=== PATIENT | female | born 1970 | race Caucasian/White ===

== ENCOUNTER 2021-02-24 21:21 | Inpatient (IN) | payer MEDICAID, OTHER ==
[~2021-02-24] VITALS: Ht 162.6 cm; Wt 85.1 kg
--- NOTE | 2021-02-24 21:26 | NUR ---
CODE NEURO PG @4 NEURO (HALEY) PG@9854
[2021-02-24] MEDS ORDERED: OMNIPAQUE 350 MG/ML, 100ML BOTTLE ONE (21:49)
[2021-02-24] MEDS ORDERED: PLEASE ENTER ALLERGIES MC SCH (22:00)
[2021-02-24] MEDS ORDERED: LORazepam 2 MG/ML, 1ML ONE (22:06)
--- NOTE | 2021-02-24 22:10 | NUR ---
FAMILY AT BS. PT. SPEAKING WITH FAMILY. SLURRED SPEECH.
--- NOTE | 2021-02-24 22:13 | NUR ---
NEURO TELE MD ASSESSED PT. PER NEUROLOGY MAINTAIN SBP LESS THAN 160; MED INFUSING PER MAR.
[2021-02-24 22:15] LABS: BASOPHILS % (AUTO) 1 % (0-1); EOSINOPHILS % (AUTO) 3 % (1-7); LYMPHOCYTES % (AUTO) 36 % (22-44); MEAN CORPUSCULAR HEMOGLOBIN 30.6 pg (27.0-34.8); MEAN CORPUSCULAR HGB CONC 33.6 g/dL (32.4-35.8); MEAN PLATELET VOLUME 9.2 fL (7.4-10.4); MONOCYTES % (AUTO) 15 % (2-9); NEUTROPHILS % (AUTO) 46 % (42-75); PLATELET COUNT 100 x10^3/uL (130-400); RED BLOOD COUNT 4.55 x10^6/uL (3.82-5.3); RED CELL DISTRIBUTION WIDTH 15.8 % (9.6-15.2)
[2021-02-24 22:16] LABS: ALBUMIN 2.9 g/dL (3.4-5.0); ANION GAP 6 mmol/L (5-15); CALCIUM 8.5 mg/dL (8.5-10.1); CHLORIDE 111 mmol/L (98-107)
--- NOTE | 2021-02-24 22:16 | NUR ---
DR. SOUZA TO BS SPEAKING WITH SON AT THIS TIME AND DISCUSSING POC.
[2021-02-24 22:18] LABS: INTERNATIONAL NORMALIZED RATIO 1.12 (0.93-1.1)
[2021-02-24 22:19] LABS: ALANINE AMINOTRANSFERASE 52 U/L (12-78); ALKALINE PHOSPHATASE 109 U/L (45-117); BILIRUBIN,TOTAL 0.6 mg/dL (0.2-1.0); CREATININE 0.63 mg/dL (0.55-1.02); TOTAL PROTEIN 7.6 g/dL (6.4-8.2)
[2021-02-24] MEDS ORDERED: LORazepam 2 MG/ML, 1ML IVPush ONE (22:30)
--- NOTE | 2021-02-24 22:38 | NUR ---
SON TOOK PT. BELONGINGS HOME WITH HIM(SHIRT, PANTS, SOCKS, UNDERWEAR). PT. DID NOT COME IN WITH ANY OTHER BELONGINGS. PT. CURRENTLY RESTING ON GUENY WITH HOB APROXIMATELY 30 DEGREES. PT. RESTING ON GURNEY WITH EYES CLOSED. NO VISIBLE DISTRESS NOTED. SEE DEC/ FOR MED DETAILS. MED ON PAUSE AT THIS TIME FOR SBP OF 134.
--- NOTE | 2021-02-24 22:58 | NUR ---
NEURO MD TO BS FOR EVAL. REQUESTING URINE DRUG SCREEN. COLLECTED AND SENT TO LAB. PT. HAS PURWICK IN PLACE FOR VOIDING.
--- NOTE | 2021-02-24 23:10 | NUR ---
DR. JORDAN TO BS TO EVAL PT. FOR ADMISSION.
--- NOTE | 2021-02-24 23:13 | NUR ---
PT. CONTINUES RESTING ON GURNEY WITH EYES CLOSED. RESPIRATIONS EVEN, NON-LABORED. NO DISTRESS NOTED.
[2021-02-24] MEDS ORDERED: DOCUSATE 100 MG CAPSULE PO PRN (23:30)
[2021-02-24] MEDS ORDERED: BISACODYL 10 MG SUPP PR PRN (23:30)
[2021-02-24] MEDS ORDERED: LORazepam 0.5MG TABLET PO PRN (23:30)
[2021-02-24] MEDS ORDERED: LORazepam 2 MG/ML, 1ML IV PRN ×5 (23:30)
[2021-02-24] MEDS ORDERED: PROMETHAZINE 25 MG/ML, 1ML IM PRN (23:30)
[2021-02-24] MEDS ORDERED: POLYETHYLENE GLYCOL 17 GM PACKET PO PRN (23:30)
[2021-02-24] MEDS ORDERED: ONDANSETRON ODT 4 MG PO PRN (23:30)
[2021-02-24] MEDS ORDERED: LORazepam 1MG TABLET PO PRN ×4 (23:30)
[2021-02-24] MEDS ORDERED: INSTRUCTION SEE COMMENTS XX ONE (23:30)
--- NOTE | 2021-02-24 23:44 | NUR ---
REPORT TO IDANIA OROZCO. UNIT READY FOR PT. TRANSPORT.
[2021-02-24 23:49] LABS: AMPHETAMINE SCREEN, URINE Positive (Negative); BARBITURATE SCREEN, URINE Negative (Negative); BENZODIAZEPINE SCREEN, URINE Negative (Negative); CANNABINOID SCREEN, URINE Negative (Negative); COCAINE SCREEN, URINE Negative (Negative); METHADONE SCREEN, URINE Negative (Negative); OPIATE SCREEN, URINE Negative (Negative)
[2021-02-25] MEDS: ATORVASTATIN 40 MG TABLET PO SCH ×2 (00:27→21:33)
[2021-02-25 02:33] VITALS: BP 157/77
[2021-02-25 04:39] LABS: BASOPHILS % (AUTO) 1 % (0-1); EOSINOPHILS % (AUTO) 3 % (1-7); LYMPHOCYTES % (AUTO) 32 % (22-44); MEAN CORPUSCULAR HEMOGLOBIN 30.9 pg (27.0-34.8); MEAN CORPUSCULAR HGB CONC 33.8 g/dL (32.4-35.8); MEAN PLATELET VOLUME 9.3 fL (7.4-10.4); MONOCYTES % (AUTO) 12 % (2-9); NEUTROPHILS % (AUTO) 53 % (42-75); PLATELET COUNT 123 x10^3/uL (130-400); RED BLOOD COUNT 4.69 x10^6/uL (3.82-5.3); RED CELL DISTRIBUTION WIDTH 15.5 % (9.6-15.2)
[2021-02-25 04:46] LABS: ANION GAP 6 mmol/L (5-15); CALCIUM 8.8 mg/dL (8.5-10.1); CHLORIDE 112 mmol/L (98-107)
[2021-02-25 04:56] LABS: ALANINE AMINOTRANSFERASE 55 U/L (12-78); ALKALINE PHOSPHATASE 105 U/L (45-117); CHOLESTEROL, TOTAL 146 mg/dL (140-239); CREATININE 0.58 mg/dL (0.55-1.02); HDL CHOL % 34 % (28-40); HDL CHOLESTEROL (DIRECT) 49 mg/dL (40-60); LDL CHOLESTEROL,CALCULATED 81 mg/dL (54-169); LDL/HDL RATIO 1.7 (0.5-3.0); TOTAL PROTEIN 7.9 g/dL (6.4-8.2); TRIGLYCERIDES 79 mg/dL (50-200); VLDL CHOLESTEROL 16 mg/dL (0-25)
[2021-02-25] MEDS: CARVEDILOL 6.25 MG TABLET PO SCH ×2 (07:00→17:57)
[2021-02-25] MEDS: CHLORDIAZEPOXIDE 25 MG CAPSULE PO SCH ×3 (07:00→17:56)
[2021-02-25] MEDS: LISINOPRIL 10 MG TABLET PO SCH ×2 (09:00→21:32)
[2021-02-25] MEDS: POTASSIUM CHLORIDE 20 MEQ, MAGNESIUM SULFATE 1 GM, THIAMINE 200 MG, FOLIC ACID 1 MG, MV... IV SCH (09:59)
[2021-02-25 14:27] LABS: MICROSCOPIC INDICATED
[2021-02-25] MEDS: LORazepam 2 MG/ML, 1ML IVPush PRN (16:05)
--- NOTE | 2021-02-25 16:10 | NUR ---
TF RECOMMENDATION IF NEEDED: Osmolite 1.2 at goal 65 ml/hr Addendum: 02/25/21 at [address] Amended: Links added.
[2021-02-26] MEDS: CHLORDIAZEPOXIDE 25 MG CAPSULE PO SCH ×4 (00:07→17:36)
[2021-02-26] MEDS: LORazepam 2 MG/ML, 1ML IVPush PRN ×2 (01:38→22:55)
[2021-02-26 04:28] LABS: BASOPHILS % (AUTO) 1 % (0-1); EOSINOPHILS % (AUTO) 1 % (1-7); LYMPHOCYTES % (AUTO) 24 % (22-44); MEAN CORPUSCULAR HEMOGLOBIN 30.4 pg (27.0-34.8); MEAN CORPUSCULAR HGB CONC 33.3 g/dL (32.4-35.8); MEAN PLATELET VOLUME 9.2 fL (7.4-10.4); MONOCYTES % (AUTO) 9 % (2-9); NEUTROPHILS % (AUTO) 65 % (42-75); PLATELET COUNT 126 x10^3/uL (130-400); RED BLOOD COUNT 4.98 x10^6/uL (3.82-5.3); RED CELL DISTRIBUTION WIDTH 15.6 % (9.6-15.2)
[2021-02-26 04:39] LABS: ANION GAP 6 mmol/L (5-15); CALCIUM 8.4 mg/dL (8.5-10.1); CHLORIDE 112 mmol/L (98-107)
[2021-02-26 04:40] LABS: CREATININE 0.57 mg/dL (0.55-1.02)
[2021-02-26] MEDS: CARVEDILOL 6.25 MG TABLET PO SCH ×2 (05:37→17:36)
[2021-02-26] MEDS: LABETALOL 5MG/ML, 20ML IV PRN ×2 (07:39→20:04)
[2021-02-26] MEDS: POTASSIUM CHLORIDE 20 MEQ, MAGNESIUM SULFATE 1 GM, THIAMINE 200 MG, FOLIC ACID 1 MG, MV... IV SCH (07:39)
[2021-02-26] MEDS: LISINOPRIL 10 MG TABLET PO SCH ×2 (09:42→20:54)
[2021-02-26] MEDS: LEVETIRACETAM 500 MG in SODIUM CHLORIDE 0.9% 100 ML IV SCH ×2 (11:07→22:29)
[2021-02-26] MEDS: SODIUM CHLORIDE 0.9% 1,000 ML IV SCH (18:28)
[2021-02-26] MEDS: ATORVASTATIN 40 MG TABLET PO SCH (20:54)
[2021-02-27] MEDS: CHLORDIAZEPOXIDE 25 MG CAPSULE PO SCH ×2 (00:30→06:10)
[2021-02-27] MEDS: LORazepam 2 MG/ML, 1ML IVPush PRN (01:00)
[2021-02-27] MEDS: CARVEDILOL 6.25 MG TABLET PO SCH ×2 (06:10→18:36)
[2021-02-27] MEDS: LISINOPRIL 10 MG TABLET PO SCH (08:11)
[2021-02-27] MEDS: LISINOPRIL 20 MG TABLET PO SCH ×2 (09:00→20:37)
[2021-02-27] MEDS: SODIUM CHLORIDE 0.9% 1,000 ML IV SCH ×2 (09:14→22:27)
[2021-02-27] MEDS ORDERED: LISINOPRIL 10 MG TABLET PO ONE (09:30)
[2021-02-27] MEDS: POTASSIUM CHLORIDE 20 MEQ, MAGNESIUM SULFATE 1 GM, THIAMINE 200 MG, FOLIC ACID 1 MG, MV... IV SCH (09:39)
[2021-02-27] MEDS: LEVETIRACETAM 500 MG in SODIUM CHLORIDE 0.9% 100 ML IV SCH ×2 (11:14→23:07)
[2021-02-27 12:49] VITALS: BP 159/84
[2021-02-27] MEDS: ACETAMINOPHEN 325 MG TABLET PO PRN (14:43)
[2021-02-27 16:05] VITALS: BP 121/75
[2021-02-27 17:05] VITALS: BP 132/79
[2021-02-27 20:19] VITALS: BP 163/94
[2021-02-27] MEDS: ATORVASTATIN 40 MG TABLET PO SCH (20:37)
[2021-02-28] VITALS (7 sets, daily range): BP systolic 137–182; BP diastolic 78–97
[2021-02-28] MEDS: LABETALOL 5MG/ML, 20ML IV PRN ×2 (00:18→01:00)
[2021-02-28] MEDS: LORazepam 2 MG/ML, 1ML IVPush PRN (00:46)
[2021-02-28] MEDS: CARVEDILOL 6.25 MG TABLET PO SCH ×2 (05:53→17:37)
[2021-02-28] MEDS: POTASSIUM CHLORIDE 20 MEQ, MAGNESIUM SULFATE 1 GM, THIAMINE 200 MG, FOLIC ACID 1 MG, MV... IV SCH (08:00)
[2021-02-28] MEDS: LISINOPRIL 20 MG TABLET PO SCH ×2 (08:01→21:17)
[2021-02-28] MEDS ORDERED: LORazepam 2 MG/ML, 1ML IVPush PRN (09:00)
[2021-02-28] MEDS: LEVETIRACETAM 500 MG in SODIUM CHLORIDE 0.9% 100 ML IV SCH ×2 (11:12→23:22)
[2021-02-28] MEDS: SODIUM CHLORIDE 0.9% 1,000 ML IV SCH (11:13)
[2021-02-28] MEDS: ATORVASTATIN 40 MG TABLET PO SCH (21:17)
[2021-03-01] VITALS (8 sets, daily range): BP systolic 143–192; BP diastolic 78–94
[2021-03-01] MEDS: SODIUM CHLORIDE 0.9% 1,000 ML IV SCH ×2 (01:03→16:24)
[2021-03-01] MEDS: LABETALOL 5MG/ML, 20ML IV PRN ×3 (02:45→04:14)
[2021-03-01] MEDS: OXYcodone IR 5MG TABLET PO PRN (04:49)
[2021-03-01] MEDS: CARVEDILOL 6.25 MG TABLET PO SCH ×2 (09:00→18:00)
[2021-03-01] MEDS: LISINOPRIL 20 MG TABLET PO SCH ×2 (09:00→21:00)
[2021-03-01] MEDS ORDERED: PHARMACY MAY ADJ FOR RENAL FX MC SCH (12:00)
[2021-03-01] MEDS ORDERED: LIDOCAINE-MPF 1%, 2ML ENDO PRN (12:00)
[2021-03-01] MEDS: AMPICILLIN/SULBACTAM 3 GM in SODIUM CHLORIDE 0.9% 100 ML IV SCH ×2 (14:48→18:47)
[2021-03-01] MEDS: LEVETIRACETAM 500 MG in SODIUM CHLORIDE 0.9% 100 ML IV SCH ×2 (16:22→23:00)
[2021-03-01] MEDS: FAMOTIDINE 20 MG/2 ML IV SCH (16:22)
[2021-03-01] MEDS: PROPOFOL 100 ML IV PRN ×2 (16:23→19:51)
[2021-03-01] MEDS ORDERED: PROPOFOL 10 MG/ML, 100ML IV ONE (18:00)
[2021-03-01] MEDS ORDERED: ETOMIDATE 20 MG/10 ML ONE (18:00)
[2021-03-01 19:10] LABS: MICROSCOPIC INDICATED
[2021-03-01] MEDS ORDERED: ACETAMINOPHEN 650 MG SUPP PR PRN (20:00)
[2021-03-01] MEDS: ATORVASTATIN 40 MG TABLET PO SCH (21:00)
[2021-03-02] MEDS: FAMOTIDINE 20 MG/2 ML IV SCH ×3 (00:24→23:45)
[2021-03-02] MEDS: AMPICILLIN/SULBACTAM 3 GM in SODIUM CHLORIDE 0.9% 100 ML IV SCH ×5 (00:24→23:45)
[2021-03-02 04:51] LABS: BASOPHILS % (AUTO) 1 % (0-1); EOSINOPHILS % (AUTO) 1 % (1-7); LYMPHOCYTES % (AUTO) 13 % (22-44); MEAN CORPUSCULAR HEMOGLOBIN 30.4 pg (27.0-34.8); MEAN CORPUSCULAR HGB CONC 33.4 g/dL (32.4-35.8); MEAN PLATELET VOLUME 10.4 fL (7.4-10.4); MONOCYTES % (AUTO) 12 % (2-9); NEUTROPHILS % (AUTO) 73 % (42-75); PLATELET COUNT 113 x10^3/uL (130-400); RED BLOOD COUNT 4.08 x10^6/uL (3.82-5.3); RED CELL DISTRIBUTION WIDTH 15.6 % (9.6-15.2)
[2021-03-02 05:05] LABS: CHLORIDE 114 mmol/L (98-107)
[2021-03-02 05:15] LABS: ANION GAP 5 mmol/L (5-15); CALCIUM 8.1 mg/dL (8.5-10.1); CREATININE 0.66 mg/dL (0.55-1.02)
[2021-03-02] MEDS: SODIUM CHLORIDE 0.9% 1,000 ML IV SCH ×3 (05:54→21:14)
[2021-03-02] MEDS: PROPOFOL 100 ML IV PRN ×2 (05:55→18:07)
[2021-03-02] MEDS: CARVEDILOL 6.25 MG TABLET PO SCH ×2 (05:55→18:07)
[2021-03-02] MEDS: METRONIDAZOLE PMX 500MG/100ML 100 ML IV SCH ×3 (08:08→23:45)
[2021-03-02] MEDS: LISINOPRIL 20 MG TABLET PO SCH ×2 (08:39→21:14)
[2021-03-02] MEDS ORDERED: ALBUTEROL/IPRATROPIUM 2.5MG/0.5MG, 3 ML ONE (10:38)
--- NOTE | 2021-03-02 12:13 | NUR ---
Tube Feed: Promote : ON propofol:65 ml/hr, OFF propofol:goal is 75 ml/hr Addendum: 03/02/21 at [address] Amended: Links added.
[2021-03-02] MEDS: LEVETIRACETAM 500 MG in SODIUM CHLORIDE 0.9% 100 ML IV SCH (13:00)
[2021-03-02] MEDS ORDERED: PHARMACOKINETIC CONSULTATION MC ONE (14:00)
[2021-03-02] MEDS ORDERED: VANCOMYCIN PER PHARMACY MC PRN (14:00)
[2021-03-02] MEDS ORDERED: PHARMACOKINETIC MONITORING MC PRN (14:00)
[2021-03-02] MEDS ORDERED: VANCOMYCIN 2,000 MG in SODIUM CHLORIDE 0.9% 500 ML IV ONE (14:30)
[2021-03-02] MEDS ORDERED: SODIUM CHLORIDE 0.9% 1,000 ML IV SCH (14:30)
[2021-03-02] MEDS: ATORVASTATIN 40 MG TABLET PO SCH (21:13)
[2021-03-03] MEDS: LEVETIRACETAM 500 MG in SODIUM CHLORIDE 0.9% 100 ML IV SCH ×2 (01:18→13:30)
[2021-03-03] MEDS: VANCOMYCIN 1,600 MG in SODIUM CHLORIDE 0.9% 250 ML IV SCH ×2 (03:11→14:46)
[2021-03-03 04:37] LABS: BASOPHILS % (AUTO) 1 % (0-1); EOSINOPHILS % (AUTO) 3 % (1-7); LYMPHOCYTES % (AUTO) 14 % (22-44); MEAN CORPUSCULAR HEMOGLOBIN 30.3 pg (27.0-34.8); MEAN PLATELET VOLUME 10.3 fL (7.4-10.4); MONOCYTES % (AUTO) 12 % (2-9); NEUTROPHILS % (AUTO) 70 % (42-75); PLATELET COUNT 114 x10^3/uL (130-400); RED BLOOD COUNT 3.89 x10^6/uL (3.82-5.3)
[2021-03-03 04:53] LABS: ANION GAP 7 mmol/L (5-15); CALCIUM 7.7 mg/dL (8.5-10.1); CHLORIDE 116 mmol/L (98-107); CREATININE 0.41 mg/dL (0.55-1.02)
[2021-03-03] MEDS: AMPICILLIN/SULBACTAM 3 GM in SODIUM CHLORIDE 0.9% 100 ML IV SCH ×3 (06:10→18:33)
[2021-03-03] MEDS: CARVEDILOL 6.25 MG TABLET PO SCH ×2 (06:10→18:35)
[2021-03-03] MEDS: SODIUM CHLORIDE 0.9% 1,000 ML IV SCH ×3 (09:07→23:18)
[2021-03-03] MEDS: PROPOFOL 100 ML IV PRN (09:11)
[2021-03-03] MEDS: METRONIDAZOLE PMX 500MG/100ML 100 ML IV SCH ×3 (09:16→23:19)
[2021-03-03] MEDS: LISINOPRIL 20 MG TABLET PO SCH ×2 (09:17→23:17)
[2021-03-03] MEDS: FAMOTIDINE 20 MG/2 ML IV SCH ×2 (12:48→23:19)
[2021-03-03] MEDS: ATORVASTATIN 40 MG TABLET PO SCH (23:17)
[2021-03-04] MEDS: LEVETIRACETAM 500 MG in SODIUM CHLORIDE 0.9% 100 ML IV SCH (01:23)
[2021-03-04] MEDS: PROPOFOL 100 ML IV PRN (01:25)
[2021-03-04] MEDS: AMPICILLIN/SULBACTAM 3 GM in SODIUM CHLORIDE 0.9% 100 ML IV SCH ×4 (01:44→16:41)
[2021-03-04 02:21] LABS: BASOPHILS % (AUTO) 1 % (0-1); EOSINOPHILS % (AUTO) 3 % (1-7); LYMPHOCYTES % (AUTO) 15 % (22-44); MEAN CORPUSCULAR HEMOGLOBIN 30.3 pg (27.0-34.8); MEAN CORPUSCULAR HGB CONC 33.2 g/dL (32.4-35.8); MEAN PLATELET VOLUME 10.3 fL (7.4-10.4); MONOCYTES % (AUTO) 13 % (2-9); NEUTROPHILS % (AUTO) 68 % (42-75); PLATELET COUNT 127 x10^3/uL (130-400); RED BLOOD COUNT 3.88 x10^6/uL (3.82-5.3); RED CELL DISTRIBUTION WIDTH 15.6 % (9.6-15.2)
[2021-03-04] MEDS: LABETALOL 5MG/ML, 20ML IV PRN ×2 (02:35→09:28)
[2021-03-04 02:48] LABS: ANION GAP 6 mmol/L (5-15); CALCIUM 7.6 mg/dL (8.5-10.1); CHLORIDE 118 mmol/L (98-107); CREATININE 0.41 mg/dL (0.55-1.02); TRIGLYCERIDES 72 mg/dL (50-200)
[2021-03-04] MEDS: VANCOMYCIN 1,600 MG in SODIUM CHLORIDE 0.9% 250 ML IV SCH (02:58)
[2021-03-04] MEDS: CARVEDILOL 6.25 MG TABLET PO SCH ×2 (05:39→16:47)
[2021-03-04] MEDS ORDERED: DIPHENOXYLATE/ATROPINE ORAL SOL PO SCH (09:00)
[2021-03-04] MEDS: SODIUM CHLORIDE 0.9% 1,000 ML IV SCH ×2 (09:15→16:41)
[2021-03-04] MEDS: LISINOPRIL 20 MG TABLET PO SCH ×2 (09:15→20:37)
[2021-03-04] MEDS: VANCOMYCIN 1,400 MG in SODIUM CHLORIDE 0.9% 250 ML IV SCH ×2 (09:17→18:12)
[2021-03-04] MEDS: OXYcodone IR 5MG TABLET PO PRN ×3 (09:17→20:51)
[2021-03-04] MEDS: DEXMEDETOMIDINE 400 MCG in SODIUM CHLORIDE 0.9% 96 ML IV PRN (09:17)
[2021-03-04 10:45] LABS: CLOSTRIDIUM DIFFICILE ANTIGEN POSITIVE; CLOSTRIDIUM DIFFICILE TOXIN NEGATIVE (Negative)
[2021-03-04] MEDS: FAMOTIDINE 20 MG/2 ML IV SCH (12:21)
[2021-03-04] MEDS: ACETAMINOPHEN 325 MG TABLET PO PRN ×2 (12:22→22:48)
[2021-03-04] MEDS: VANCOMYCIN 50 MG/ML ORAL SUSP PO SCH ×2 (16:53→22:06)
[2021-03-04] MEDS: ATORVASTATIN 40 MG TABLET PO SCH (20:37)
[2021-03-05] MEDS: AMPICILLIN/SULBACTAM 3 GM in SODIUM CHLORIDE 0.9% 100 ML IV SCH ×4 (00:45→17:40)
[2021-03-05] MEDS: FAMOTIDINE 20 MG/2 ML IV SCH ×2 (00:45→13:14)
[2021-03-05] MEDS: SODIUM CHLORIDE 0.9% 1,000 ML IV SCH ×3 (00:45→16:00)
[2021-03-05] MEDS: OXYcodone IR 5MG TABLET PO PRN (00:56)
[2021-03-05] MEDS: VANCOMYCIN 1,400 MG in SODIUM CHLORIDE 0.9% 250 ML IV SCH ×3 (02:30→18:30)
[2021-03-05] MEDS: VANCOMYCIN 50 MG/ML ORAL SUSP PO SCH ×4 (04:17→22:22)
[2021-03-05 05:03] LABS: CHLORIDE 118 mmol/L (98-107)
[2021-03-05 05:08] LABS: ANION GAP 6 mmol/L (5-15); CALCIUM 7.4 mg/dL (8.5-10.1); CREATININE 0.52 mg/dL (0.55-1.02)
[2021-03-05] MEDS: CARVEDILOL 6.25 MG TABLET PO SCH ×2 (05:23→17:40)
[2021-03-05 05:51] LABS: BASOPHILS % (AUTO) 1 % (0-1); EOSINOPHILS % (AUTO) 4 % (1-7); LYMPHOCYTES % (AUTO) 15 % (22-44); MEAN CORPUSCULAR HEMOGLOBIN 30.7 pg (27.0-34.8); MEAN CORPUSCULAR HGB CONC 33.2 g/dL (32.4-35.8); MEAN PLATELET VOLUME 10.7 fL (7.4-10.4); MONOCYTES % (AUTO) 13 % (2-9); NEUTROPHILS % (AUTO) 68 % (42-75); PLATELET COUNT 133 x10^3/uL (130-400); RED BLOOD COUNT 3.61 x10^6/uL (3.82-5.3); RED CELL DISTRIBUTION WIDTH 15.9 % (9.6-15.2)
[2021-03-05] MEDS: LISINOPRIL 20 MG TABLET PO SCH ×2 (09:12→20:59)
[2021-03-05] MEDS: ATORVASTATIN 40 MG TABLET PO SCH (20:59)
[2021-03-05] MEDS: DEXMEDETOMIDINE 400 MCG in SODIUM CHLORIDE 0.9% 96 ML IV PRN (21:00)
[2021-03-06] MEDS: SODIUM CHLORIDE 0.9% 1,000 ML IV SCH ×4 (00:26→23:57)
[2021-03-06] MEDS: AMPICILLIN/SULBACTAM 3 GM in SODIUM CHLORIDE 0.9% 100 ML IV SCH ×4 (00:26→18:09)
[2021-03-06] MEDS: FAMOTIDINE 20 MG/2 ML IV SCH ×3 (00:26→23:57)
[2021-03-06] MEDS: VANCOMYCIN 1,400 MG in SODIUM CHLORIDE 0.9% 250 ML IV SCH ×3 (02:39→20:27)
[2021-03-06 03:49] LABS: BASOPHILS % (AUTO) 1 % (0-1); EOSINOPHILS % (AUTO) 4 % (1-7); LYMPHOCYTES % (AUTO) 12 % (22-44); MEAN CORPUSCULAR HEMOGLOBIN 29.7 pg (27.0-34.8); MEAN CORPUSCULAR HGB CONC 32.4 g/dL (32.4-35.8); MEAN PLATELET VOLUME 10.4 fL (7.4-10.4); MONOCYTES % (AUTO) 10 % (2-9); NEUTROPHILS % (AUTO) 73 % (42-75); PLATELET COUNT 141 x10^3/uL (130-400); RED BLOOD COUNT 3.89 x10^6/uL (3.82-5.3); RED CELL DISTRIBUTION WIDTH 15.7 % (9.6-15.2)
[2021-03-06 03:55] LABS: ANION GAP 3 mmol/L (5-15); CALCIUM 8.1 mg/dL (8.5-10.1); CHLORIDE 119 mmol/L (98-107); CREATININE 0.51 mg/dL (0.55-1.02)
[2021-03-06] MEDS: VANCOMYCIN 50 MG/ML ORAL SUSP PO SCH ×4 (04:52→22:18)
[2021-03-06] MEDS: CARVEDILOL 6.25 MG TABLET PO SCH ×2 (06:02→18:09)
[2021-03-06] MEDS: METOCLOPRAMIDE 5 MG/ML, 2ML IVPush SCH ×3 (08:47→20:27)
[2021-03-06] MEDS: LISINOPRIL 20 MG TABLET PO SCH ×2 (08:47→20:27)
[2021-03-06] MEDS: DEXMEDETOMIDINE 400 MCG in SODIUM CHLORIDE 0.9% 96 ML IV PRN (08:51)
[2021-03-06] MEDS: ATORVASTATIN 40 MG TABLET PO SCH (20:27)
[2021-03-06] MEDS: OXYcodone IR 5MG TABLET PO PRN (23:57)
[2021-03-07] MEDS: AMPICILLIN/SULBACTAM 3 GM in SODIUM CHLORIDE 0.9% 100 ML IV SCH ×4 (01:15→21:15)
[2021-03-07] MEDS: METOCLOPRAMIDE 5 MG/ML, 2ML IVPush SCH ×4 (03:00→21:13)
[2021-03-07] MEDS: VANCOMYCIN 50 MG/ML ORAL SUSP PO SCH ×4 (04:10→23:22)
[2021-03-07 04:29] LABS: BASOPHILS % (AUTO) 1 % (0-1); EOSINOPHILS % (AUTO) 3 % (1-7); LYMPHOCYTES % (AUTO) 11 % (22-44); MEAN CORPUSCULAR HEMOGLOBIN 30.2 pg (27.0-34.8); MEAN CORPUSCULAR HGB CONC 33.3 g/dL (32.4-35.8); MEAN PLATELET VOLUME 10.3 fL (7.4-10.4); MONOCYTES % (AUTO) 9 % (2-9); NEUTROPHILS % (AUTO) 76 % (42-75); PLATELET COUNT 164 x10^3/uL (130-400); RED BLOOD COUNT 3.68 x10^6/uL (3.82-5.3); RED CELL DISTRIBUTION WIDTH 15.8 % (9.6-15.2)
[2021-03-07 04:38] LABS: ANION GAP 6 mmol/L (5-15); CALCIUM 7.7 mg/dL (8.5-10.1); CHLORIDE 117 mmol/L (98-107); TRIGLYCERIDES 95 mg/dL (50-200)
[2021-03-07] MEDS: VANCOMYCIN 1,400 MG in SODIUM CHLORIDE 0.9% 250 ML IV SCH ×2 (05:19→12:19)
[2021-03-07] MEDS: CARVEDILOL 6.25 MG TABLET PO SCH ×2 (06:28→16:56)
[2021-03-07] MEDS: SODIUM CHLORIDE 0.9% 1,000 ML IV SCH ×2 (09:39→21:13)
[2021-03-07] MEDS: LISINOPRIL 20 MG TABLET PO SCH ×2 (09:39→21:13)
[2021-03-07] MEDS: FAMOTIDINE 20 MG/2 ML IV SCH ×2 (12:19→23:21)
[2021-03-07] MEDS: DEXMEDETOMIDINE 400 MCG in SODIUM CHLORIDE 0.9% 96 ML IV PRN ×2 (16:57)
[2021-03-07] MEDS: ATORVASTATIN 40 MG TABLET PO SCH (21:13)
[2021-03-08] MEDS: VANCOMYCIN 1,400 MG in SODIUM CHLORIDE 0.9% 250 ML IV SCH ×2 (01:13→13:04)
[2021-03-08] MEDS: OXYcodone IR 5MG TABLET PO PRN (02:16)
[2021-03-08] MEDS: METOCLOPRAMIDE 5 MG/ML, 2ML IVPush SCH (03:08)
[2021-03-08] MEDS: AMPICILLIN/SULBACTAM 3 GM in SODIUM CHLORIDE 0.9% 100 ML IV SCH ×4 (03:08→21:38)
[2021-03-08] MEDS: SODIUM CHLORIDE 0.9% 1,000 ML IV SCH (05:02)
[2021-03-08] MEDS: CARVEDILOL 6.25 MG TABLET PO SCH ×2 (05:02→17:18)
[2021-03-08] MEDS: VANCOMYCIN 50 MG/ML ORAL SUSP PO SCH ×4 (05:02→23:36)
[2021-03-08 05:37] LABS: BASOPHILS % (AUTO) 1 % (0-1); EOSINOPHILS % (AUTO) 3 % (1-7); LYMPHOCYTES % (AUTO) 17 % (22-44); MEAN CORPUSCULAR HEMOGLOBIN 30.6 pg (27.0-34.8); MEAN CORPUSCULAR HGB CONC 33.5 g/dL (32.4-35.8); MEAN PLATELET VOLUME 10.3 fL (7.4-10.4); MONOCYTES % (AUTO) 10 % (2-9); NEUTROPHILS % (AUTO) 69 % (42-75); PLATELET COUNT 167 x10^3/uL (130-400); RED BLOOD COUNT 3.66 x10^6/uL (3.82-5.3)
[2021-03-08 05:45] LABS: ANION GAP 7 mmol/L (5-15); CALCIUM 7.9 mg/dL (8.5-10.1); CHLORIDE 118 mmol/L (98-107); CREATININE 0.61 mg/dL (0.55-1.02)
[2021-03-08] MEDS: LISINOPRIL 20 MG TABLET PO SCH ×2 (09:36→19:36)
[2021-03-08] MEDS ORDERED: GUAIFENESIN/COD200MG-20MG/10ML LIQUID PO PRN (10:00)
[2021-03-08] MEDS: FAMOTIDINE 20 MG/2 ML IV SCH ×2 (13:04→23:36)
[2021-03-08] MEDS ORDERED: FUROSEMIDE 40 MG/4 ML IV ONE (18:30)
[2021-03-08] MEDS: ATORVASTATIN 40 MG TABLET PO SCH (19:36)
[2021-03-09] MEDS: VANCOMYCIN 1,400 MG in SODIUM CHLORIDE 0.9% 250 ML IV SCH ×2 (00:56→12:51)
[2021-03-09] MEDS: DEXMEDETOMIDINE 400 MCG in SODIUM CHLORIDE 0.9% 96 ML IV PRN ×2 (00:56→15:05)
[2021-03-09] MEDS: AMPICILLIN/SULBACTAM 3 GM in SODIUM CHLORIDE 0.9% 100 ML IV SCH ×4 (03:35→21:06)
[2021-03-09] MEDS: OXYcodone IR 5MG TABLET PO PRN ×2 (04:10→22:33)
[2021-03-09 04:46] LABS: BASOPHILS % (AUTO) 1 % (0-1); EOSINOPHILS % (AUTO) 3 % (1-7); LYMPHOCYTES % (AUTO) 16 % (22-44); MEAN CORPUSCULAR HEMOGLOBIN 30.2 pg (27.0-34.8); MEAN CORPUSCULAR HGB CONC 33.2 g/dL (32.4-35.8); MEAN PLATELET VOLUME 10.3 fL (7.4-10.4); MONOCYTES % (AUTO) 7 % (2-9); NEUTROPHILS % (AUTO) 73 % (42-75); PLATELET COUNT 176 x10^3/uL (130-400); RED BLOOD COUNT 3.72 x10^6/uL (3.82-5.3); RED CELL DISTRIBUTION WIDTH 15.5 % (9.6-15.2)
[2021-03-09 04:57] LABS: ALANINE AMINOTRANSFERASE 31 U/L (12-78); ALBUMIN 1.6 g/dL (3.4-5.0); ANION GAP 8 mmol/L (5-15); CHLORIDE 116 mmol/L (98-107); CREATININE 0.52 mg/dL (0.55-1.02)
[2021-03-09 05:00] LABS: ALKALINE PHOSPHATASE 62 U/L (45-117); BILIRUBIN,TOTAL 0.7 mg/dL (0.2-1.0); TOTAL PROTEIN 6.1 g/dL (6.4-8.2)
[2021-03-09] MEDS: VANCOMYCIN 50 MG/ML ORAL SUSP PO SCH ×4 (05:25→22:32)
[2021-03-09] MEDS: CARVEDILOL 6.25 MG TABLET PO SCH ×2 (05:25→17:23)
[2021-03-09] MEDS: LISINOPRIL 20 MG TABLET PO SCH ×2 (09:47→21:07)
[2021-03-09] MEDS: FAMOTIDINE 20 MG/2 ML IV SCH (12:06)
[2021-03-09] MEDS ORDERED: POTASSIUM CHLORIDE 20 MEQ TAB.ER.PRT PO ONE (14:30)
[2021-03-09] MEDS ORDERED: FUROSEMIDE 40 MG/4 ML IV ONE (14:30)
[2021-03-09] MEDS ORDERED: MAGNESIUM SULFATE PMX 2GM/50ML 50 ML IV ONE (17:00)
[2021-03-09] MEDS: ATORVASTATIN 40 MG TABLET PO SCH (21:06)
[2021-03-10] MEDS: FAMOTIDINE 20 MG/2 ML IV SCH ×3 (00:25→23:39)
[2021-03-10] MEDS: VANCOMYCIN 1,400 MG in SODIUM CHLORIDE 0.9% 250 ML IV SCH (00:25)
[2021-03-10] MEDS: AMPICILLIN/SULBACTAM 3 GM in SODIUM CHLORIDE 0.9% 100 ML IV SCH (02:58)
[2021-03-10 04:32] LABS: BASOPHILS % (AUTO) 1 % (0-1); EOSINOPHILS % (AUTO) 4 % (1-7); LYMPHOCYTES % (AUTO) 20 % (22-44); MEAN CORPUSCULAR HEMOGLOBIN 30.5 pg (27.0-34.8); MEAN CORPUSCULAR HGB CONC 33.5 g/dL (32.4-35.8); MEAN PLATELET VOLUME 10.1 fL (7.4-10.4); MONOCYTES % (AUTO) 7 % (2-9); NEUTROPHILS % (AUTO) 68 % (42-75); PLATELET COUNT 171 x10^3/uL (130-400); RED BLOOD COUNT 3.75 x10^6/uL (3.82-5.3); RED CELL DISTRIBUTION WIDTH 15.7 % (9.6-15.2)
[2021-03-10 04:44] LABS: ANION GAP 7 mmol/L (5-15); CALCIUM 8.4 mg/dL (8.5-10.1); CHLORIDE 116 mmol/L (98-107)
[2021-03-10 04:45] LABS: CREATININE 0.48 mg/dL (0.55-1.02); TRIGLYCERIDES 72 mg/dL (50-200)
[2021-03-10] MEDS: VANCOMYCIN 50 MG/ML ORAL SUSP PO SCH ×4 (05:16→23:39)
[2021-03-10] MEDS: CARVEDILOL 6.25 MG TABLET PO SCH (05:16)
[2021-03-10] MEDS ORDERED: FUROSEMIDE 40 MG/4 ML IV SCH (09:00)
[2021-03-10] MEDS: LISINOPRIL 20 MG TABLET PO SCH ×2 (09:04→20:45)
[2021-03-10] MEDS: DOXYCYCLINE 100MG TABLET PO SCH ×2 (09:04→20:45)
[2021-03-10] MEDS ORDERED: POTASSIUM CHLORIDE 20 MEQ PACKET ONE (09:10)
[2021-03-10] MEDS: POTASSIUM CHLORIDE 20 MEQ PACKET PO SCH (09:12)
[2021-03-10] MEDS: ATORVASTATIN 40 MG TABLET PO SCH (20:45)
[2021-03-10] MEDS: LABETALOL 5MG/ML, 20ML IV PRN (22:36)
[2021-03-10] MEDS: OXYcodone IR 5MG TABLET PO PRN (23:39)
[2021-03-11 04:57] LABS: BASOPHILS % (AUTO) 1 % (0-1); EOSINOPHILS % (AUTO) 4 % (1-7); LYMPHOCYTES % (AUTO) 19 % (22-44); MEAN CORPUSCULAR HEMOGLOBIN 30.3 pg (27.0-34.8); MONOCYTES % (AUTO) 7 % (2-9); NEUTROPHILS % (AUTO) 69 % (42-75); PLATELET COUNT 194 x10^3/uL (130-400); RED BLOOD COUNT 3.62 x10^6/uL (3.82-5.3); RED CELL DISTRIBUTION WIDTH 16.1 % (9.6-15.2)
[2021-03-11 05:03] LABS: ANION GAP 6 mmol/L (5-15); CALCIUM 7.9 mg/dL (8.5-10.1); CHLORIDE 112 mmol/L (98-107); CREATININE 0.52 mg/dL (0.55-1.02)
[2021-03-11] MEDS: VANCOMYCIN 50 MG/ML ORAL SUSP PO SCH ×3 (05:05→23:37)
[2021-03-11] MEDS: DOXYCYCLINE 100MG TABLET PO SCH ×2 (08:55→23:36)
[2021-03-11] MEDS: LISINOPRIL 40 MG TABLET PO SCH ×2 (08:55→23:36)
[2021-03-11] MEDS: POTASSIUM CHLORIDE 20 MEQ PACKET PO SCH (08:56)
[2021-03-11] MEDS: FUROSEMIDE 40 MG/4 ML IV SCH ×2 (08:56→18:23)
[2021-03-11] MEDS: FAMOTIDINE 20 MG/2 ML IV SCH ×2 (12:48→23:37)
[2021-03-11] MEDS: LABETALOL 5MG/ML, 20ML IV PRN (18:23)
[2021-03-11] MEDS: ATORVASTATIN 40 MG TABLET PO SCH (23:37)
[2021-03-12] MEDS: OXYcodone IR 5MG TABLET PO PRN (01:02)
[2021-03-12] MEDS: VANCOMYCIN 50 MG/ML ORAL SUSP PO SCH ×4 (04:06→22:38)
[2021-03-12 04:30] LABS: BASOPHILS % (AUTO) 0 % (0-1); EOSINOPHILS % (AUTO) 3 % (1-7); LYMPHOCYTES % (AUTO) 19 % (22-44); MEAN CORPUSCULAR HEMOGLOBIN 30.1 pg (27.0-34.8); MEAN CORPUSCULAR HGB CONC 32.9 g/dL (32.4-35.8); MEAN PLATELET VOLUME 9.7 fL (7.4-10.4); MONOCYTES % (AUTO) 8 % (2-9); NEUTROPHILS % (AUTO) 70 % (42-75); PLATELET COUNT 197 x10^3/uL (130-400); RED BLOOD COUNT 3.66 x10^6/uL (3.82-5.3); RED CELL DISTRIBUTION WIDTH 15.7 % (9.6-15.2)
[2021-03-12 04:40] LABS: ANION GAP 6 mmol/L (5-15); CALCIUM 7.9 mg/dL (8.5-10.1); CHLORIDE 106 mmol/L (98-107); CREATININE 0.42 mg/dL (0.55-1.02)
[2021-03-12] MEDS ORDERED: POTASSIUM CHLORIDE 10% 40 MEQ/30 ML UDC PO ONE (07:30)
[2021-03-12] MEDS ORDERED: FUROSEMIDE 40 MG/4 ML IV ONE (07:30)
[2021-03-12] MEDS: LISINOPRIL 40 MG TABLET PO SCH ×2 (09:45→22:37)
[2021-03-12] MEDS: DOXYCYCLINE 100MG TABLET PO SCH (09:46)
--- NOTE | 2021-03-12 09:54 | NUR ---
Promote: goal: On propofol: 65 m/hr, off propofol: 70 ml/hr Addendum: 03/12/21 at [address] Amended: Links added.
[2021-03-12 13:34] VITALS: BP 138/77
[2021-03-12 20:41] VITALS: BP 169/76
[2021-03-12] MEDS: ATORVASTATIN 40 MG TABLET PO SCH (22:38)
[2021-03-12 23:58] VITALS: BP 167/71
[2021-03-13] MEDS: DOXYCYCLINE 50 MG/5 ML ORAL SUSP PO SCH ×3 (00:15→23:22)
[2021-03-13] MEDS: VANCOMYCIN 50 MG/ML ORAL SUSP PO SCH ×4 (04:26→21:47)
[2021-03-13 06:29] VITALS: BP 131/72
[2021-03-13] MEDS: LISINOPRIL 40 MG TABLET PO SCH ×2 (09:27→21:46)
[2021-03-13 13:13] VITALS: BP 173/88
[2021-03-13] MEDS: CARVEDILOL 6.25 MG TABLET PO SCH (16:51)
[2021-03-13 19:56] VITALS: BP 149/72
[2021-03-13] MEDS: ATORVASTATIN 40 MG TABLET PO SCH (21:47)
[2021-03-13] MEDS: OXYcodone IR 5MG TABLET PO PRN (21:50)
[2021-03-14 00:10] VITALS: BP 125/65
[2021-03-14] MEDS: OXYcodone IR 5MG TABLET PO PRN ×3 (02:02→22:00)
[2021-03-14] MEDS: VANCOMYCIN 50 MG/ML ORAL SUSP PO SCH ×4 (03:58→22:00)
[2021-03-14 06:06] VITALS: BP 146/81
[2021-03-14] MEDS: CARVEDILOL 6.25 MG TABLET PO SCH ×2 (06:08→17:54)
[2021-03-14 06:20] LABS: BASOPHILS % (AUTO) 1 % (0-1); EOSINOPHILS % (AUTO) 5 % (1-7); LYMPHOCYTES % (AUTO) 22 % (22-44); MEAN CORPUSCULAR HEMOGLOBIN 29.9 pg (27.0-34.8); MEAN CORPUSCULAR HGB CONC 32.4 g/dL (32.4-35.8); MEAN PLATELET VOLUME 9.8 fL (7.4-10.4); MONOCYTES % (AUTO) 10 % (2-9); NEUTROPHILS % (AUTO) 62 % (42-75); PLATELET COUNT 209 x10^3/uL (130-400); RED BLOOD COUNT 3.93 x10^6/uL (3.82-5.3)
[2021-03-14 06:29] LABS: ANION GAP 6 mmol/L (5-15); CALCIUM 8.4 mg/dL (8.5-10.1); CHLORIDE 110 mmol/L (98-107)
[2021-03-14 06:30] LABS: CREATININE 0.51 mg/dL (0.55-1.02)
[2021-03-14] MEDS: DOXYCYCLINE 50 MG/5 ML ORAL SUSP PO SCH ×2 (09:30→22:05)
[2021-03-14] MEDS: LISINOPRIL 40 MG TABLET PO SCH (09:31)
[2021-03-14] MEDS: ONDANSETRON 2MG/ML, 2ML IVPush PRN (11:11)
[2021-03-14 14:53] VITALS: BP 164/78
[2021-03-14 18:56] VITALS: BP 117/69
[2021-03-14] MEDS ORDERED: LABETALOL 5MG/ML, 20ML IV PRN (21:00)
[2021-03-14] MEDS: ATORVASTATIN 40 MG TABLET PO SCH (21:59)
[2021-03-15 01:19] VITALS: BP 120/69
[2021-03-15] MEDS: OXYcodone IR 5MG TABLET PO PRN (02:23)
[2021-03-15] MEDS: VANCOMYCIN 50 MG/ML ORAL SUSP PO SCH ×4 (03:49→22:27)
[2021-03-15 04:32] LABS: BASOPHILS % (AUTO) 1 % (0-1); EOSINOPHILS % (AUTO) 6 % (1-7); LYMPHOCYTES % (AUTO) 17 % (22-44); MEAN CORPUSCULAR HEMOGLOBIN 30.3 pg (27.0-34.8); MEAN CORPUSCULAR HGB CONC 32.9 g/dL (32.4-35.8); MEAN PLATELET VOLUME 9.6 fL (7.4-10.4); MONOCYTES % (AUTO) 8 % (2-9); NEUTROPHILS % (AUTO) 68 % (42-75); PLATELET COUNT 197 x10^3/uL (130-400); RED BLOOD COUNT 3.71 x10^6/uL (3.82-5.3); RED CELL DISTRIBUTION WIDTH 15.8 % (9.6-15.2)
[2021-03-15 04:39] LABS: ANION GAP 3 mmol/L (5-15); CALCIUM 8.4 mg/dL (8.5-10.1); CHLORIDE 107 mmol/L (98-107); CREATININE 0.49 mg/dL (0.55-1.02)
[2021-03-15 05:59] VITALS: BP 114/71
[2021-03-15] MEDS: CARVEDILOL 6.25 MG TABLET PO SCH ×2 (06:05→17:53)
[2021-03-15 06:34] VITALS: BP 123/75
[2021-03-15] MEDS: DOXYCYCLINE 50 MG/5 ML ORAL SUSP PO SCH ×2 (08:50→22:26)
[2021-03-15] MEDS: LISINOPRIL 40 MG TABLET PO SCH (08:51)
[2021-03-15 13:50] VITALS: BP 142/67
[2021-03-15 19:18] VITALS: BP 131/59
[2021-03-15] MEDS: ATORVASTATIN 40 MG TABLET PO SCH (22:25)
[2021-03-16 00:15] VITALS: BP 138/67
[2021-03-16] MEDS: OXYcodone IR 5MG TABLET PO PRN (03:35)
[2021-03-16] MEDS: VANCOMYCIN 50 MG/ML ORAL SUSP PO SCH ×4 (04:28→21:05)
[2021-03-16 05:07] VITALS: BP 126/72
[2021-03-16] MEDS: CARVEDILOL 6.25 MG TABLET PO SCH ×2 (05:11→18:23)
[2021-03-16 06:02] LABS: ANION GAP 6 mmol/L (5-15); CHLORIDE 107 mmol/L (98-107); CREATININE 0.49 mg/dL (0.55-1.02)
[2021-03-16 06:04] LABS: BASOPHILS % (AUTO) 1 % (0-1); EOSINOPHILS % (AUTO) 4 % (1-7); LYMPHOCYTES % (AUTO) 22 % (22-44); MEAN CORPUSCULAR HEMOGLOBIN 30.4 pg (27.0-34.8); MEAN CORPUSCULAR HGB CONC 33.4 g/dL (32.4-35.8); MEAN PLATELET VOLUME 9.8 fL (7.4-10.4); MONOCYTES % (AUTO) 10 % (2-9); NEUTROPHILS % (AUTO) 64 % (42-75); PLATELET COUNT 196 x10^3/uL (130-400); RED BLOOD COUNT 3.75 x10^6/uL (3.82-5.3); RED CELL DISTRIBUTION WIDTH 15.8 % (9.6-15.2)
[2021-03-16 06:36] VITALS: BP 105/64
[2021-03-16] MEDS: LISINOPRIL 40 MG TABLET PO SCH (09:13)
[2021-03-16 12:28] VITALS: BP 108/66
[2021-03-16 19:07] VITALS: BP 144/77
[2021-03-16] MEDS: ATORVASTATIN 40 MG TABLET PO SCH (21:03)
[2021-03-16] MEDS: MELATONIN 5 MG TABLET PO PRN (23:53)
[2021-03-17 00:56] VITALS: BP 125/66
[2021-03-17] MEDS: VANCOMYCIN 50 MG/ML ORAL SUSP PO SCH ×4 (04:14→22:08)
[2021-03-17 05:43] VITALS: BP 141/76
[2021-03-17] MEDS: CARVEDILOL 6.25 MG TABLET PO SCH ×2 (05:49→17:42)
[2021-03-17 07:43] VITALS: BP 114/67
[2021-03-17] MEDS: LISINOPRIL 40 MG TABLET PO SCH (09:28)
[2021-03-17 12:10] VITALS: BP 112/63
[2021-03-17 17:46] VITALS: BP 159/84
[2021-03-17 18:20] VITALS: BP 165/74
[2021-03-17] MEDS: ATORVASTATIN 40 MG TABLET PO SCH (21:28)
[2021-03-17] MEDS: RISPERIDONE 0.5 MG TABLET PO SCH (21:29)
[2021-03-17] MEDS: MELATONIN 5 MG TABLET PO PRN (22:40)
[2021-03-18 00:47] VITALS: BP 153/82
[2021-03-18] MEDS: VANCOMYCIN 50 MG/ML ORAL SUSP PO SCH ×4 (04:08→21:26)
[2021-03-18] MEDS: CARVEDILOL 6.25 MG TABLET PO SCH ×2 (06:09→18:15)
[2021-03-18 07:01] VITALS: BP 97/60
[2021-03-18] MEDS: LISINOPRIL 40 MG TABLET PO SCH (08:12)
[2021-03-18] MEDS: RISPERIDONE 0.5 MG TABLET PO SCH ×2 (08:12→21:27)
[2021-03-18] MEDS: DIPHENHYDRAMINE 25 MG CAPSULE PO PRN (11:07)
[2021-03-18 13:56] VITALS: BP 112/69
[2021-03-18 18:17] VITALS: BP 143/85
[2021-03-18 19:36] VITALS: BP 139/76
[2021-03-18] MEDS: ATORVASTATIN 40 MG TABLET PO SCH (21:27)
[2021-03-19 00:03] VITALS: BP 158/74
[2021-03-19] MEDS: MELATONIN 5 MG TABLET PO PRN (00:16)
[2021-03-19] MEDS: VANCOMYCIN 50 MG/ML ORAL SUSP PO SCH ×4 (04:27→21:47)
[2021-03-19 06:08] VITALS: BP 127/72
[2021-03-19] MEDS: CARVEDILOL 6.25 MG TABLET PO SCH ×2 (06:11→17:56)
[2021-03-19] MEDS: LISINOPRIL 40 MG TABLET PO SCH (08:40)
[2021-03-19] MEDS: RISPERIDONE 0.5 MG TABLET PO SCH ×2 (08:41→20:05)
[2021-03-19 12:55] VITALS: BP 125/68
[2021-03-19] MEDS: ATORVASTATIN 40 MG TABLET PO SCH (20:05)
[2021-03-19 20:15] VITALS: BP 120/73
[2021-03-19] MEDS: OXYcodone IR 5MG TABLET PO PRN (20:15)
[2021-03-19] MEDS: ONDANSETRON 2MG/ML, 2ML IVPush PRN (20:56)
[2021-03-20 00:21] VITALS: BP 104/67
[2021-03-20] MEDS: VANCOMYCIN 50 MG/ML ORAL SUSP PO SCH ×4 (04:40→22:34)
[2021-03-20] MEDS: CARVEDILOL 6.25 MG TABLET PO SCH ×2 (06:09→17:57)
[2021-03-20 07:35] VITALS: BP 102/62
[2021-03-20] MEDS: RISPERIDONE 0.5 MG TABLET PO SCH ×2 (08:27→20:12)
[2021-03-20] MEDS: LISINOPRIL 40 MG TABLET PO SCH (08:28)
[2021-03-20] MEDS: OXYcodone IR 5MG TABLET PO PRN ×2 (10:14→20:11)
[2021-03-20 14:01] VITALS: BP 138/82
[2021-03-20 19:16] VITALS: BP 100/61
[2021-03-20] MEDS: ONDANSETRON 2MG/ML, 2ML IVPush PRN (20:10)
[2021-03-20] MEDS: ATORVASTATIN 40 MG TABLET PO SCH (20:13)
[2021-03-21 00:10] VITALS: BP 105/64
[2021-03-21] MEDS: ONDANSETRON 2MG/ML, 2ML IVPush PRN (03:08)
[2021-03-21] MEDS: ACETAMINOPHEN 325 MG TABLET PO PRN (03:08)
[2021-03-21] MEDS: VANCOMYCIN 50 MG/ML ORAL SUSP PO SCH (03:57)
[2021-03-21] MEDS: CARVEDILOL 6.25 MG TABLET PO SCH ×2 (05:46→18:22)
[2021-03-21 05:47] VITALS: BP 102/61
[2021-03-21 06:28] VITALS: BP 107/67
[2021-03-21] MEDS: LISINOPRIL 40 MG TABLET PO SCH (10:39)
[2021-03-21] MEDS: RISPERIDONE 0.5 MG TABLET PO SCH ×2 (10:39→20:24)
[2021-03-21] MEDS: metroNIDAZOLE 500 MG TABLET PO SCH ×2 (11:22→20:24)
[2021-03-21 14:16] VITALS: BP 118/72
[2021-03-21] MEDS: OXYcodone IR 5MG TABLET PO PRN (15:26)
[2021-03-21] MEDS: CHOLESTYRAMINE LIGHT 4GM PACKET PO SCH ×2 (16:00→20:24)
[2021-03-21 20:13] VITALS: BP 122/67
[2021-03-21] MEDS: ATORVASTATIN 40 MG TABLET PO SCH (20:24)
[2021-03-22 01:00] VITALS: BP 147/77
[2021-03-22] MEDS: MELATONIN 5 MG TABLET PO PRN ×2 (01:05→22:57)
[2021-03-22] MEDS: CARVEDILOL 6.25 MG TABLET PO SCH ×2 (05:03→17:42)
[2021-03-22 05:29] LABS: BASOPHILS % (AUTO) 1 % (0-1); EOSINOPHILS % (AUTO) 4 % (1-7); LYMPHOCYTES % (AUTO) 31 % (22-44); MEAN CORPUSCULAR HGB CONC 33.3 g/dL (32.4-35.8); MEAN PLATELET VOLUME 10.3 fL (7.4-10.4); MONOCYTES % (AUTO) 13 % (2-9); NEUTROPHILS % (AUTO) 51 % (42-75); PLATELET COUNT 129 x10^3/uL (130-400); RED BLOOD COUNT 4.23 x10^6/uL (3.82-5.3); RED CELL DISTRIBUTION WIDTH 15.6 % (9.6-15.2)
[2021-03-22 05:50] LABS: ANION GAP 7 mmol/L (5-15); CALCIUM 8.6 mg/dL (8.5-10.1); CHLORIDE 107 mmol/L (98-107); CREATININE 0.56 mg/dL (0.55-1.02)
[2021-03-22 07:01] VITALS: BP 114/69
[2021-03-22] MEDS: LISINOPRIL 40 MG TABLET PO SCH (07:52)
[2021-03-22] MEDS: metroNIDAZOLE 500 MG TABLET PO SCH ×2 (07:52→19:56)
[2021-03-22] MEDS: RISPERIDONE 0.5 MG TABLET PO SCH ×2 (07:52→19:56)
[2021-03-22] MEDS: CHOLESTYRAMINE LIGHT 4GM PACKET PO SCH ×3 (07:55→21:07)
[2021-03-22] MEDS: OXYcodone IR 5MG TABLET PO PRN (11:01)
[2021-03-22 14:29] VITALS: BP 137/78
[2021-03-22] MEDS: ACETAMINOPHEN 325 MG TABLET PO PRN ×2 (17:42→22:57)
[2021-03-22 17:44] VITALS: BP 135/70
[2021-03-22 18:58] VITALS: BP 105/66
[2021-03-22] MEDS: ATORVASTATIN 40 MG TABLET PO SCH (19:56)
[2021-03-23 00:14] VITALS: BP 113/71
[2021-03-23] MEDS: CARVEDILOL 6.25 MG TABLET PO SCH ×2 (05:37→20:57)
[2021-03-23 07:12] VITALS: BP 147/98
[2021-03-23] MEDS: LISINOPRIL 40 MG TABLET PO SCH (09:02)
[2021-03-23] MEDS: OXYcodone IR 5MG TABLET PO PRN ×2 (09:02→20:57)
[2021-03-23] MEDS: metroNIDAZOLE 500 MG TABLET PO SCH ×2 (09:02→20:57)
[2021-03-23] MEDS: CHOLESTYRAMINE LIGHT 4GM PACKET PO SCH ×4 (09:02→22:26)
[2021-03-23] MEDS: RISPERIDONE 0.5 MG TABLET PO SCH ×2 (09:03→20:57)
[2021-03-23 12:40] VITALS: BP 116/78
[2021-03-23 19:34] VITALS: BP 141/72
[2021-03-23] MEDS: ATORVASTATIN 40 MG TABLET PO SCH (20:56)
[2021-03-24 00:50] VITALS: BP 111/57
[2021-03-24] MEDS: CARVEDILOL 6.25 MG TABLET PO SCH ×2 (06:15→18:03)
[2021-03-24 08:44] VITALS: BP 113/70
[2021-03-24] MEDS: RISPERIDONE 0.5 MG TABLET PO SCH ×2 (09:51→21:24)
[2021-03-24] MEDS: LISINOPRIL 40 MG TABLET PO SCH (09:51)
[2021-03-24] MEDS: metroNIDAZOLE 500 MG TABLET PO SCH ×2 (09:51→21:24)
[2021-03-24] MEDS: CHOLESTYRAMINE LIGHT 4GM PACKET PO SCH ×3 (09:51→22:24)
[2021-03-24 12:57] VITALS: BP 105/63
[2021-03-24 19:14] VITALS: BP 146/76
[2021-03-24] MEDS: OXYcodone IR 5MG TABLET PO PRN (21:24)
[2021-03-24] MEDS: ATORVASTATIN 40 MG TABLET PO SCH (21:24)
[2021-03-25 01:34] VITALS: BP 108/57
[2021-03-25] MEDS: CARVEDILOL 6.25 MG TABLET PO SCH ×2 (05:26→17:45)
[2021-03-25 07:23] VITALS: BP 104/65
[2021-03-25] MEDS: LISINOPRIL 40 MG TABLET PO SCH (10:20)
[2021-03-25] MEDS: RISPERIDONE 0.5 MG TABLET PO SCH ×2 (10:20→20:29)
[2021-03-25] MEDS: metroNIDAZOLE 500 MG TABLET PO SCH ×2 (10:21→20:29)
[2021-03-25] MEDS: CHOLESTYRAMINE LIGHT 4GM PACKET PO SCH ×3 (10:21→22:39)
[2021-03-25 12:56] VITALS: BP 119/81
[2021-03-25] MEDS: DIPHENHYDRAMINE 25 MG CAPSULE PO PRN (17:45)
[2021-03-25] MEDS: NYSTATIN TOPICAL POWDER 15GM TP SCH ×2 (18:29→20:48)
[2021-03-25 19:56] VITALS: BP 132/80
[2021-03-25] MEDS: OXYcodone IR 5MG TABLET PO PRN (20:29)
[2021-03-25] MEDS: ATORVASTATIN 40 MG TABLET PO SCH (20:29)
[2021-03-26 00:21] VITALS: BP 118/75
[2021-03-26] MEDS: CARVEDILOL 6.25 MG TABLET PO SCH ×2 (06:05→16:37)
[2021-03-26] MEDS: metroNIDAZOLE 500 MG TABLET PO SCH ×2 (08:33→21:25)
[2021-03-26] MEDS: RISPERIDONE 0.5 MG TABLET PO SCH ×2 (08:33→21:18)
[2021-03-26] MEDS: LISINOPRIL 40 MG TABLET PO SCH (08:33)
[2021-03-26] MEDS: CHOLESTYRAMINE LIGHT 4GM PACKET PO SCH ×3 (08:33→22:23)
[2021-03-26 08:41] VITALS: BP 114/73
[2021-03-26] MEDS: NYSTATIN TOPICAL POWDER 15GM TP SCH ×3 (08:41→21:19)
[2021-03-26 13:40] VITALS: BP 125/77
[2021-03-26] MEDS: DIPHENHYDRAMINE 25 MG CAPSULE PO PRN (16:41)
[2021-03-26 18:32] VITALS: BP 124/71
[2021-03-26] MEDS: ATORVASTATIN 40 MG TABLET PO SCH (21:17)
[2021-03-26] MEDS: MELATONIN 5 MG TABLET PO PRN (21:25)
[2021-03-27 00:24] VITALS: BP 102/68
[2021-03-27 05:01] VITALS: BP 119/68
[2021-03-27] MEDS: CARVEDILOL 6.25 MG TABLET PO SCH ×2 (05:03→17:52)
[2021-03-27 06:28] VITALS: BP 121/72
[2021-03-27] MEDS: NYSTATIN TOPICAL POWDER 15GM TP SCH ×3 (08:30→20:21)
[2021-03-27] MEDS: CHOLESTYRAMINE LIGHT 4GM PACKET PO SCH ×3 (08:30→21:28)
[2021-03-27] MEDS: LISINOPRIL 40 MG TABLET PO SCH (08:30)
[2021-03-27] MEDS: metroNIDAZOLE 500 MG TABLET PO SCH ×2 (08:30→20:21)
[2021-03-27] MEDS: RISPERIDONE 0.5 MG TABLET PO SCH ×2 (08:30→20:21)
[2021-03-27 13:52] VITALS: BP 128/67
[2021-03-27] MEDS: OXYcodone IR 5MG TABLET PO PRN (16:44)
[2021-03-27 18:56] VITALS: BP 103/62
[2021-03-27] MEDS: ATORVASTATIN 40 MG TABLET PO SCH (20:21)
[2021-03-27] MEDS: DIPHENHYDRAMINE 25 MG CAPSULE PO PRN (21:28)
[2021-03-27] MEDS: MELATONIN 5 MG TABLET PO PRN (22:01)
[2021-03-28 01:27] VITALS: BP 113/68
[2021-03-28] MEDS: CARVEDILOL 6.25 MG TABLET PO SCH ×2 (06:04→17:54)
[2021-03-28 07:43] VITALS: BP 113/70
[2021-03-28] MEDS: CHOLESTYRAMINE LIGHT 4GM PACKET PO SCH ×3 (08:33→19:47)
[2021-03-28] MEDS: LISINOPRIL 40 MG TABLET PO SCH (08:34)
[2021-03-28] MEDS: metroNIDAZOLE 500 MG TABLET PO SCH ×2 (08:34→19:17)
[2021-03-28] MEDS: NYSTATIN TOPICAL POWDER 15GM TP SCH ×3 (08:35→21:00)
[2021-03-28] MEDS: RISPERIDONE 0.5 MG TABLET PO SCH ×2 (08:35→19:17)
[2021-03-28 13:01] VITALS: BP 103/61
[2021-03-28] MEDS: DIPHENHYDRAMINE 25 MG CAPSULE PO PRN ×2 (14:29→22:27)
[2021-03-28] MEDS: OXYcodone IR 5MG TABLET PO PRN (14:29)
[2021-03-28 19:15] VITALS: BP 130/78
[2021-03-28] MEDS: ATORVASTATIN 40 MG TABLET PO SCH (19:17)
[2021-03-28] MEDS: MELATONIN 5 MG TABLET PO PRN (19:47)
[2021-03-29 00:02] VITALS: BP 112/68
[2021-03-29] MEDS: CARVEDILOL 6.25 MG TABLET PO SCH ×2 (05:41→17:28)
[2021-03-29 08:03] VITALS: BP 118/78
[2021-03-29] MEDS: CHOLESTYRAMINE LIGHT 4GM PACKET PO SCH ×3 (08:18→22:27)
[2021-03-29] MEDS: RISPERIDONE 0.5 MG TABLET PO SCH ×2 (08:18→19:59)
[2021-03-29] MEDS: LISINOPRIL 40 MG TABLET PO SCH (08:18)
[2021-03-29] MEDS: metroNIDAZOLE 500 MG TABLET PO SCH ×2 (08:18→19:59)
[2021-03-29] MEDS: NYSTATIN TOPICAL POWDER 15GM TP SCH ×3 (08:19→22:27)
[2021-03-29] MEDS: OXYcodone IR 5MG TABLET PO PRN (12:51)
[2021-03-29 13:30] VITALS: BP 107/64
[2021-03-29 19:24] VITALS: BP 98/61
[2021-03-29] MEDS: ATORVASTATIN 40 MG TABLET PO SCH (19:58)
[2021-03-29] MEDS: MELATONIN 5 MG TABLET PO PRN (19:59)
[2021-03-29] MEDS: DIPHENHYDRAMINE 25 MG CAPSULE PO PRN (22:27)
[2021-03-30] VITALS: BP 115/76
[2021-03-30] MEDS: CARVEDILOL 6.25 MG TABLET PO SCH ×2 (06:24→18:15)
[2021-03-30 08:10] VITALS: BP 102/66
[2021-03-30] MEDS: NYSTATIN TOPICAL POWDER 15GM TP SCH ×3 (09:00→21:08)
[2021-03-30] MEDS: RISPERIDONE 0.5 MG TABLET PO SCH ×2 (09:49→21:07)
[2021-03-30] MEDS: CHOLESTYRAMINE LIGHT 4GM PACKET PO SCH ×3 (09:49→21:07)
[2021-03-30] MEDS: metroNIDAZOLE 500 MG TABLET PO SCH ×2 (09:49→21:06)
[2021-03-30] MEDS: LISINOPRIL 40 MG TABLET PO SCH (09:49)
[2021-03-30 13:45] VITALS: BP 101/67
[2021-03-30] MEDS: DIPHENHYDRAMINE 25 MG CAPSULE PO PRN (13:45)
[2021-03-30] MEDS: OXYcodone IR 5MG TABLET PO PRN (18:15)
[2021-03-30 18:34] VITALS: BP 117/76
[2021-03-30] MEDS: MELATONIN 5 MG TABLET PO PRN (21:06)
[2021-03-30] MEDS: ATORVASTATIN 40 MG TABLET PO SCH (21:06)
[2021-03-31] MEDS: DIPHENHYDRAMINE 25 MG CAPSULE PO PRN (00:25)
[2021-03-31 00:38] VITALS: BP 106/71
[2021-03-31] MEDS: CARVEDILOL 6.25 MG TABLET PO SCH ×2 (06:02→18:31)
[2021-03-31 07:38] VITALS: BP 130/83
[2021-03-31] MEDS: metroNIDAZOLE 500 MG TABLET PO SCH ×2 (11:18→20:55)
[2021-03-31] MEDS: CHOLESTYRAMINE LIGHT 4GM PACKET PO SCH ×3 (11:18→20:55)
[2021-03-31] MEDS: RISPERIDONE 0.5 MG TABLET PO SCH ×2 (11:18→20:55)
[2021-03-31] MEDS: LISINOPRIL 40 MG TABLET PO SCH (11:18)
[2021-03-31] MEDS: NYSTATIN TOPICAL POWDER 15GM TP SCH ×4 (11:22→21:34)
[2021-03-31 15:02] VITALS: BP 100/62
[2021-03-31 19:32] VITALS: BP 135/81
[2021-03-31] MEDS: ATORVASTATIN 40 MG TABLET PO SCH (20:55)
[2021-03-31] MEDS: MELATONIN 5 MG TABLET PO PRN (21:15)
[2021-03-31] MEDS: OXYcodone IR 5MG TABLET PO PRN (21:15)
[2021-04-01 00:10] VITALS: BP 123/74
[2021-04-01] MEDS: CARVEDILOL 6.25 MG TABLET PO SCH (04:55)
[2021-04-01] MEDS: OXYcodone IR 5MG TABLET PO PRN ×2 (05:01→20:21)
[2021-04-01 07:14] VITALS: BP 99/60
[2021-04-01] MEDS: LISINOPRIL 40 MG TABLET PO SCH (09:19)
[2021-04-01] MEDS: RISPERIDONE 0.5 MG TABLET PO SCH ×2 (09:19→20:21)
[2021-04-01] MEDS: CHOLESTYRAMINE LIGHT 4GM PACKET PO SCH ×3 (09:19→20:20)
[2021-04-01] MEDS: NYSTATIN TOPICAL POWDER 15GM TP SCH ×3 (09:19→20:21)
[2021-04-01] MEDS: metroNIDAZOLE 500 MG TABLET PO SCH ×2 (09:19→20:20)
[2021-04-01 14:27] VITALS: BP 91/58
[2021-04-01] MEDS: METOPROLOL TARTRATE 25 MG TAB PO SCH (17:30)
[2021-04-01 17:44] VITALS: BP 102/64
[2021-04-01 19:19] VITALS: BP 100/55
[2021-04-01] MEDS: ATORVASTATIN 40 MG TABLET PO SCH (20:20)
[2021-04-01] MEDS: MELATONIN 5 MG TABLET PO PRN (20:27)
[2021-04-02 00:36] VITALS: BP 103/68
[2021-04-02] MEDS: METOPROLOL TARTRATE 25 MG TAB PO SCH ×2 (05:16→17:08)
[2021-04-02 06:50] VITALS: BP 98/64
[2021-04-02] MEDS: LISINOPRIL 40 MG TABLET PO SCH (09:14)
[2021-04-02] MEDS: CHOLESTYRAMINE LIGHT 4GM PACKET PO SCH ×3 (09:15→20:20)
[2021-04-02] MEDS: RISPERIDONE 0.5 MG TABLET PO SCH ×2 (09:15→20:21)
[2021-04-02] MEDS: metroNIDAZOLE 500 MG TABLET PO SCH (09:15)
[2021-04-02] MEDS: NYSTATIN TOPICAL POWDER 15GM TP SCH ×3 (09:15→20:28)
[2021-04-02] MEDS ORDERED: CHOL239. PO (13:15)
[2021-04-02] MEDS ORDERED: LISI40TA9 PO (13:15)
[2021-04-02] MEDS ORDERED: RISP0.5T62 PO (13:15)
[2021-04-02] MEDS ORDERED: ATOR40TA78 PO (13:15)
[2021-04-02] MEDS ORDERED: METO25TA35 PO (13:15)
[2021-04-02] MEDS ORDERED: DOCU-131 PO (13:15)
[2021-04-02 14:32] VITALS: BP 126/78
[2021-04-02 20:04] VITALS: BP 114/70
[2021-04-02] MEDS: MELATONIN 5 MG TABLET PO PRN (20:20)
[2021-04-02] MEDS: ATORVASTATIN 40 MG TABLET PO SCH (20:21)
[2021-04-02] MEDS: OXYcodone IR 5MG TABLET PO PRN (20:27)
[2021-04-03 03:44] VITALS: BP 145/86
[2021-04-03 06:16] VITALS: BP 115/77
[2021-04-03] MEDS: METOPROLOL TARTRATE 25 MG TAB PO SCH (06:20)
[2021-04-03] MEDS: CHOLESTYRAMINE LIGHT 4GM PACKET PO SCH (08:09)
[2021-04-03] MEDS: LISINOPRIL 40 MG TABLET PO SCH (08:09)
[2021-04-03] MEDS: RISPERIDONE 0.5 MG TABLET PO SCH (08:10)
[2021-04-03] MEDS: NYSTATIN TOPICAL POWDER 15GM TP SCH (08:13)
== END 2021-04-03 13:54 | disposition home or self-care (01) | DRG 44 ==
LOC: EDBD 21:21 → ED 23:20 → EDIP 23:26 → ICU 23:53 → 4EST 02-27 12:32 → CCU 03-01 11:10 → ICU 03-06 18:56 → CCU 03-09 11:07 → 4NW 03-12 11:17 → 3N 03-12 23:34 → DCLOUNGE 04-03 12:40 → 3N 04-03 13:06
PROVIDERS: ADMIT Internal Medicine; ATTEND Internal Medicine
PROC: 5A1955Z Respiratory Ventilation, Greater than 96 Consecutive Hours (ICD-10-PCS; principal; 2021-03-01)
PROC: 0BH17EZ Insertion of Endotracheal Airway into Trachea, Via Natural or Artificial Opening (ICD-10-PCS; 2021-03-01)
PROC: 0B9B8ZZ Drainage of Left Lower Lobe Bronchus, Via Natural or Artificial Opening Endoscopic (ICD-10-PCS; 2021-03-01)
PROC: 0B968ZZ Drainage of Right Lower Lobe Bronchus, Via Natural or Artificial Opening Endoscopic (ICD-10-PCS; 2021-03-01)
PROC: 0T9B70Z Drainage of Bladder with Drainage Device, Via Natural or Artificial Opening (ICD-10-PCS; 2021-03-01)
DX: I61.5 Nontraumatic intracerebral hemorrhage, intraventricular (principal); J96.01 Acute respiratory failure with hypoxia; J69.0 Pneumonitis due to inhalation of food and vomit; G93.41 Metabolic encephalopathy; Z99.11 Dependence on respirator [ventilator] status; A04.72 Enterocolitis due to Clostridium difficile, not specified as recurrent; D69.6 Thrombocytopenia, unspecified; E88.09 Other disorders of plasma-protein metabolism, not elsewhere classified; G81.94 Hemiplegia, unspecified affecting left nondominant side; I10 Essential (primary) hypertension; I16.1 Hypertensive emergency; F10.239 Alcohol dependence with withdrawal, unspecified; Z91.14 Patient's other noncompliance with medication regimen; B19.20 Unspecified viral hepatitis C without hepatic coma; G51.0 Bell's palsy; R47.1 Dysarthria and anarthria; F15.10 Other stimulant abuse, uncomplicated; B96.89 Other specified bacterial agents as the cause of diseases classified elsewhere; N39.0 Urinary tract infection, site not specified; Z79.899 Other long term (current) drug therapy; Y90.9 Presence of alcohol in blood, level not specified; E87.6 Hypokalemia; F39 Unspecified mood [affective] disorder
CPT/HCPCS: 36415; 36600; 74018; 74230; 96374; 99285; J3370; 31624; 70450; 70496; 70498; 70553; 71045; 80047; 80048; 80053; 80061; 80202; 80299; 80307; 80320; 80329; 81001; 82803; 82962; 83036; 83735; 84100; 84443; 84478; 85025; 85610; 85730; 87040; 87070; 87077; 87081; 87086; 87147; 87186; 87205; 87324; 93005; 93306; 93356; 94002; 94003; 95819; G0378; J0295; J1940; J1953; J2405; J2704; J3411; J3475; J3480; Q9967; G0480; J2060; J2765; J7030; J7040; J7050; Q0163